=== PATIENT | male | born 1990 | race Caucasian/White ===

== ENCOUNTER → 2016-06-02 | Outpatient (CLI) | payer OTHER ==
[~2016-06-02] MED LIST: CYCL10TA6 PO; OXYC-57 PO
--- NOTE | 2016-06-02 10:49 | DIAGNOSTIC IMAGING REPORT ---
SPLENIC ULTRASOUND CLINICAL HISTORY: Left-sided abdominal pain COMPARISON STUDY: No previous studies for comparison. FINDINGS: The spleen measures 11.2 cm in length. No splenic masses were visualized. There are no perisplenic fluid collections. There is no left-sided hydronephrosis. IMPRESSION: Normal splenic ultrasound Electronically signed by: Roland Zaragoza M.D. 06/02/2016 10:48 AM Dictated Date/Time: 06/02/2016 10:47 AM
--- NOTE | 2016-06-02 10:51 | DIAGNOSTIC IMAGING REPORT ---
EXAMINATION: RENAL ULTRASOUND CLINICAL HISTORY: Left-sided abdominal pain COMPARISON STUDY: None FINDINGS: The right kidney measures 11.9 cm. The left kidney measures 10.8 cm.. There is no evidence of hydronephrosis. There is mild prominence of the proximal and mid left ureter. The distal ureter was nonvisualized. No renal masses are visualized. No bladder abnormalities are visualized. Bilateral ureteral jets were visualized. There is a post void residual of 17 cc. IMPRESSION : 1. Mild prominence of the proximal to mid left ureter. The distal left ureter was not visualized. Bilateral ureteral jets were delineated 2. No renal masses identified. Electronically signed by: Roland Zaragoza M.D. 06/02/2016 10:50 AM Dictated Date/Time: 06/02/2016 10:48 AM
== END | disposition home or self-care (01) ==
LOC: C.ULTR 09:29
PROVIDERS: ATTEND Internal Medicine
DX: R10.9 Unspecified abdominal pain (principal)

== ENCOUNTER → 2016-06-14 | Outpatient (CLI) | payer OTHER ==
[2016-06-14 13:59] LABS: HEMATOCRIT 42.4 % (42-52); MEAN CELL VOLUME 93.6 fL (80-100); MEAN CORPUSCULAR HEMOGLOBIN 31.3 pg (25-34); MEAN CORPUSCULAR HGB CONC 33.5 g/dl (32-36); MEAN PLATELET VOLUME 10.8 fL (7.4-10.4); PLATELET COUNT 237 K/uL (130-400); RED BLOOD COUNT 4.53 M/uL (4.7-6.1); WHITE BLOOD COUNT 5.14 K/uL (4.8-10.8)
[2016-06-14 14:28] LABS: URINE APPEARANCE CLEAR (CLEAR); URINE BILIRUBIN NEG (NEG); URINE COLOR YELLOW; URINE EPITHELIAL CELL AUTO 0-5 /lpf (0-5); URINE NITRITE NEG (NEG); URINE SPECIFIC GRAVITY 1.012 (1.000-1.030); UROBILINOGEN NEG (NEG)
[2016-06-14 14:35] LABS: MANUAL MICROSCOPIC REQUIRED? NO; REVIEW REQ? NO
[2016-06-14 14:38] LABS: ALT/SGPT 30 U/L (12-78); AST/SGOT 26 U/L (15-37); BLOOD UREA NITROGEN 20 mg/dl (7-18); CALCIUM 8.9 mg/dl (8.5-10.1); CARBON DIOXIDE 28 mmol/L (21-32); CHLORIDE 104 mmol/L (98-107); GLUCOSE 73 mg/dl (70-99); POTASSIUM 3.5 mmol/L (3.5-5.1); SODIUM 141 mmol/L (136-145)
[2016-06-14 14:41] LABS: ALB/GLOB RATIO 1.5 (0.9-2); ALKALINE PHOSPHATASE 67 U/L (45-117); CHOLESTEROL 118 mg/dl (0-200); HDL CHOLESTEROL 58 mg/dl; LDL CHOLESTEROL CALCULATED 48 mg/dl; TRIGLYCERIDES 60 mg/dl (0-150); VERY LOW DENSITY LIPOPROT CALC 12 mg/dl
== END | disposition home or self-care (01) ==
LOC: C.LAB1850 11:58
PROVIDERS: ATTEND Internal Medicine
DX: Z00.00 Encounter for general adult medical examination without abnormal findings (principal); R10.9 Unspecified abdominal pain; K62.5 Hemorrhage of anus and rectum; Z13.220 Encounter for screening for lipoid disorders

== ENCOUNTER 2016-06-22 08:59 | Emergency (ER) | payer OTHER ==
[~2016-06-22] VITALS: Ht 188 cm; Wt 64.1 kg
[2016-06-22 09:07] VITALS: TEMP 36.4; Ht 188 cm; Wt 64.1 kg
[2016-06-22] MEDS ORDERED: KETOROLAC TROMETHAMINE 60 MG/2 ML VIAL IM STA (10:20)
[2016-06-22] MEDS ORDERED: HYDROmorphone INJ 2 MG/ML SYR/VIAL IM STA (10:20)
--- NOTE | 2016-06-22 10:25 | EMERGENCY ROOM VISIT NOTE ---
History Report prepared by Elsa: Subhash Rodrigues Under the Supervision of: Dr. Jorge Diego M.D. First contact with patient: 09:42 Chief Complaint: NECK PAIN Stated Complaint: SEVERE NECK PAIN/RT SHOULDER, LWR LEFT ABD. PAIN History of Present Illness The patient is a 26 year old male who presents to the Emergency Room with complaints of worsening right neck and swelling since yesterday morning. The pain is described as intense and is worsened with movement. He also has pain into his right shoulder. He has never had pain like this before. The patient had acetaminophen last night but did not take anything for pain today. 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 The patient has never followed up with Orthopedics. The patient notes that he also has lower left abdominal pain that he believes is related to his kidney. He was diagnosed with hydronephrosis and follows up with Dr. Irwin (Urologist). The patient is scheduled for a CT of his abdomen next week. Source of History: patient Onset: yesterday Position: shoulder (left) Symptom Intensity: intense Timing: worsening Modifying Factors (Worsening): movement Associated Symptoms: + abdominal pain Review of Systems See HPI for pertinent positives & negatives. A total of 10 systems reviewed and were otherwise negative. Past Medical & Surgical Medical Problems: (1) Hydronephrosis Family History No pertinent family history Social History Smoking Status: Never Smoker Marital Status: in relationship Occupation Status: employed Current/Historical Medications Scheduled Cyclobenzaprine Hcl (Flexeril), 10 MG PO TID Scheduled PRN Oxycodone/Acetaminophen 5MG/325MG (Percocet 5MG/325MG), 1-2 TAB PO Q4H PRN for Pain Allergies Coded Allergies: No Known Allergies (Unverified , 06/22/16) Physical Exam Vital Signs Date Time Temp Pulse Resp B/P Pulse Ox O2 Delivery O2 Flow Rate FiO2 06/22/16 11:49 69 104/66 97 06/22/16 10:35 69 18 140/97 100 Room Air 06/22/16 09:07 36.4 54 18 108/69 99 Room Air Physical Exam GENERAL: Patient is a healthy-appearing well-nourished, unable to get comfortable. HEAD: Normocephalic atraumatic EYES: Ocular movements intact pupils equal and react to light OROPHARYNX mucous membranes are moist no exudates present no erythema or edema present NECK: Supple no nuchal rigidity. Sternoclavicular muscle is in full spasm. CHEST: Good equal expansion LUNGS: Clear and equal to auscultation CARDIAC: Normal S1 and S2 ABDOMEN: Soft nontender no guarding BACK: No CVA tenderness EXTREMITIES: No pain upon palpation normal muscle strength in all groups no clubbing cyanosis or edema NEURO: Patient is following commands is answering questions appropriately. Alert and oriented x3 Cranial Nerves 2-12 grossly intact Medical Decision & Procedures ER Provider Diagnostic Interpretation: Radiology results as stated below per my review and radiologist interpretation: ABDOMEN AND PELVIS CT WITHOUT CONTRAST CT DOSE: 374.37 mGycm HISTORY: Left flank pain. Pt c/o left sided kidney pain TECHNIQUE: Multiaxial CT images of the abdomen and pelvis were performed without contrast. COMPARISON STUDY: Renal ultrasound 06/02/2016. FINDINGS: The lung bases are clear. The unenhanced liver, spleen, gallbladder, pancreas, kidneys, and adrenal glands are within normal limits. Suboptimal evaluation for bowel pathology due to the lack of intravenous and oral contrast. However, there is no definite bowel wall thickening or obstruction. The pelvic organs are unremarkable. No suspicious lytic or blastic osseous lesions. There is a left extrarenal pelvis. No hydronephrosis. No renal or ureteral calculi. Normal appendix. Left-sided L5 pars defect. Small focus of gas within the right gluteal muscles is likely intravenous. However, please correlate for recent trauma to exclude a soft tissue laceration. IMPRESSION: 1. No renal stones or hydronephrosis. 2. No definite bowel wall thickening or obstruction. 3. Normal appendix. 4. Small focus of gas within the right gluteal muscles is likely intravenous. However, please correlate for recent trauma to exclude a soft tissue laceration. Electronically signed by: Rie Trejo M.D. 06/22/2016 11:19 AM Dictated Date/Time: 06/22/2016 11:09 AM CERVICAL SPINE 5 VIEWS HISTORY: Pt c/o right neck/shoulder pain COMPARISON: None. FINDINGS: The cervical spine is visualized from C1 through the superior endplate of T1. There is no fracture. No subluxation. Disc spaces are preserved. Prevertebral soft tissues and the atlantodens interval are intact. Mild dextroscoliosis. IMPRESSION: No fracture or subluxation within the cervical spine. Mild dextroscoliosis. This could be positional. Electronically signed by: Rei Trejo M.D. 06/22/2016 11:33 AM Dictated Date/Time: 06/22/2016 11:31 AM RIGHT SHOULDER 3 VIEWS HISTORY: Pt c/o Rt shoulder pain Right COMPARISON: None. FINDINGS: There is no fracture or dislocation. Soft tissues are unremarkable. The right clavicle is intact. IMPRESSION: No fractures. Electronically signed by: Rei Trejo M.D. 06/22/2016 11:38 AM Dictated Date/Time: 06/22/2016 11:36 AM Medications Administered Medications (Trade) Dose Ordered Sig/Tere Route Start Time Stop Time Status Last Admin Dose Admin Ketorolac Tromethamine (Toradol Inj) 60 mg NOW STAT IM 06/22/16 10:20 06/22/16 10:44 DC 06/22/16 10:29 60 MG Hydromorphone HCl (Dilaudid Inj) 2 mg NOW STAT IM 06/22/16 10:20 06/22/16 10:44 DC 06/22/16 10:29 2 MG Ondansetron HCl (Zofran Odt) 4 mg ONE ONCE PO 06/22/16 10:30 06/22/16 10:44 DC 06/22/16 10:29 4 MG Ondansetron HCl (Zofran Odt) 4 mg ONE STAT PO 06/22/16 12:14 06/22/16 12:15 DC 06/22/16 12:19 4 MG ED Course 1014: Past medical records reviewed. The patient was evaluated in room A12b. A complete history and physical examination was performed. 1020: Dilaudid 2 mg IM, Toradol 60 mg IM. 1030: Zofran Odt 4 mg PO. 1145: Updated patient and significant other. 1200: Reassessed the patient. Discussed the findings with him. He verbalized understanding and agreement. The patient is ready for discharge. 1214: Zofran Odt 4 mg PO. Medical Decision Differential diagnosis: Etiologies such as fracture, dislocation, neurovascular compromise, compartment syndrome, soft tissue injury, as well as others were entertained. This is a 26-year-old male who presents emergency department complaining of neck pain. The patient appears to have a stress muscle to the right of his neck and this appears to be the cause of his pain. In addition the patient is requesting a CAT scan of his abdomen pelvis due to urology follow-up. I recommended that laboratory work be drawn however both patient and his significant other refused laboratory work. CAT scan of the abdomen pelvis does not show any acute process in addition x-rays of the neck and shoulder do not show any acute process. The patient was given Toradol and Dilaudid to relax him in the emergency department along with Zofran for nausea this resulted in almost complete resolution of the patient's symptoms. I will note that the patient arrived during a period of high volume high acuity in the emergency department and there are such they had to wait for an hour to see a doctor but there were 2 critical patients in front of this patient. Impression Primary Impression: Bienvenidoicollis Scribe Attestation The scribe's documentation has been prepared under my direction and personally reviewed by me in its entirety. I confirm that the note above accurately reflects all work, treatment, procedures, and medical decision making performed by me. Departure Information Dispostion Home / Self-Care Prescriptions Oxycodone/Acetaminophen 5MG/325MG (PERCOCET 5MG/325MG) Tab 1-2 TAB PO Q4H Y for Pain, #14 TAB Prov: Jorge Diego MD 06/22/16 Cyclobenzaprine Hcl (FLEXERIL) 10 Mg Tab 10 MG PO TID, #21 TAB Prov: Joreg Diego MD 06/22/16 Referrals No Doctor, Assigned (PCP) Forms HOME CARE DOCUMENTATION FORM, IMPORTANT VISIT INFORMATION, WORK / SCHOOL INSTRUCTIONS Patient Instructions My [facility], [facility] Additional Instructions Follow up with DR Morgan and Dr Irwin's offices You received narcotic or benzodiazepene medication while in the emergency room today. Do not drive, operate heavy machinery, or drink alcohol under the influence of this medication. Take 600 mg Ibuprofen every 6 hours Take flexeril for breakthrough pain Take Percocet for breakthrough pain You have been examined and treated today on an emergency basis only. This is not a substitute for, or an effort to provide, complete comprehensive medical care. It is impossible to recognize and treat all injuries or illnesses in a single emergency department visit. It is therefore important that you follow up closely with your PCP. Call as soon as possible for an appointment. Thank you for your time and consideration. I look forward to speaking with you again soon. Please don't hesitate to call us if you have any questions.
[2016-06-22] MEDS ORDERED: ONDANSETRON 4MG OD TAB PO ONE (10:30)
--- NOTE | 2016-06-22 11:20 | DIAGNOSTIC IMAGING REPORT ---
ABDOMEN AND PELVIS CT WITHOUT CONTRAST CT DOSE: 374.37 mGycm HISTORY: Left flank pain. Pt c/o left sided kidney pain TECHNIQUE: Multiaxial CT images of the abdomen and pelvis were performed without contrast. COMPARISON STUDY: Renal ultrasound 06/02/2016. FINDINGS: The lung bases are clear. The unenhanced liver, spleen, gallbladder, pancreas, kidneys, and adrenal glands are within normal limits. Suboptimal evaluation for bowel pathology due to the lack of intravenous and oral contrast. However, there is no definite bowel wall thickening or obstruction. The pelvic organs are unremarkable. No suspicious lytic or blastic osseous lesions. There is a left extrarenal pelvis. No hydronephrosis. No renal or ureteral calculi. Normal appendix. Left-sided L5 pars defect. Small focus of gas within the right gluteal muscles is likely intravenous. However, please correlate for recent trauma to exclude a soft tissue laceration. IMPRESSION: 1. No renal stones or hydronephrosis. 2. No definite bowel wall thickening or obstruction. 3. Normal appendix. 4. Small focus of gas within the right gluteal muscles is likely intravenous. However, please correlate for recent trauma to exclude a soft tissue laceration. Electronically signed by: Rei Trejo M.D. 06/22/2016 11:19 AM Dictated Date/Time: 06/22/2016 11:09 AM
--- NOTE | 2016-06-22 11:34 | DIAGNOSTIC IMAGING REPORT ---
CERVICAL SPINE 5 VIEWS HISTORY: Pt c/o right neck/shoulder pain COMPARISON: None. FINDINGS: The cervical spine is visualized from C1 through the superior endplate of T1. There is no fracture. No subluxation. Disc spaces are preserved. Prevertebral soft tissues and the atlantodens interval are intact. Mild dextroscoliosis. IMPRESSION: No fracture or subluxation within the cervical spine. Mild dextroscoliosis. This could be positional. Electronically signed by: Rei Trejo M.D. 06/22/2016 11:33 AM Dictated Date/Time: 06/22/2016 11:31 AM
--- NOTE | 2016-06-22 11:39 | DIAGNOSTIC IMAGING REPORT ---
RIGHT SHOULDER 3 VIEWS HISTORY: Pt c/o Rt shoulder pain Right COMPARISON: None. FINDINGS: There is no fracture or dislocation. Soft tissues are unremarkable. The right clavicle is intact. IMPRESSION: No fractures. Electronically signed by: Rei Trejo M.D. 06/22/2016 11:38 AM Dictated Date/Time: 06/22/2016 11:36 AM
[2016-06-22 11:49] VITALS: BP 104/66; PULSE 69; O2SAT 97
[2016-06-22] MEDS ORDERED: OXYC-57 PO (11:57)
[2016-06-22] MEDS ORDERED: CYCL10TA6 PO (11:57)
[2016-06-22] MEDS ORDERED: ONDANSETRON 4MG OD TAB PO STA (12:14)
== END 2016-06-22 12:22 | disposition home or self-care (01) ==
LOC: C.EDB 09:01 → C.EDA 12:22
DX: M43.6 Torticollis (principal); M54.2 Cervicalgia; M25.511 Pain in right shoulder; N13.30 Unspecified hydronephrosis

== ENCOUNTER → 2016-07-24 | Outpatient (CLI) | payer OTHER ==
[~2016-07-24] MED LIST changes: -CYCL10TA6 PO
== END | disposition home or self-care (01) ==
LOC: C.LABSPEC 17:10
PROVIDERS: ATTEND Urology
DX: R10.9 Unspecified abdominal pain (principal); R31.29 Other microscopic hematuria; N13.30 Unspecified hydronephrosis